=== PATIENT | male | born 1950 | race Caucasian/White ===

== ENCOUNTER 2018-02-23 07:58 | Day surgery (SDC) | payer MEDICARE, OTHER ==
[~2018-02-23] VITALS: Ht 177.8 cm; Wt 74.5 kg
[~2018-02-23 07:58] MED LIST: ERYT.5TO RIGHTEYE; IRON160 M1; Lovastatin20 MG PO
== END 2018-02-23 10:12 | disposition home or self-care (01) ==
LOC: ORSCSDS 07:58
PROVIDERS: Student in an Organized Health Care Education/Training Program
PROC: 0DJD8ZZ Inspection of Lower Intestinal Tract, Via Natural or Artificial Opening Endoscopic (ICD-10-PCS; principal; 2018-02-23 09:15)
DX: Z12.11 Encounter for screening for malignant neoplasm of colon (principal); K64.8 Other hemorrhoids; K64.4 Residual hemorrhoidal skin tags
CPT/HCPCS: J7120